=== PATIENT | female | born 1940 | race Caucasian/White ===

== ENCOUNTER → 2016-06-25 | Outpatient (CLI) | payer MEDICARE, OTHER ==
[~2016-06-25] MED LIST: ASPIRIN 81MG TA81 MG PO; CALCIUM 600MG+D1 TAB PO; CARTRIDGE STAM1 EACH SQ; LISINOPRIL10 MG PO; PRAVACHOL40 MG PO; RANITIDINE 150150 MG PO
--- NOTE | 2016-06-30 12:39 | RADIOLOGY REPORT PS360 ---
US THYROID, US ORGAN SITE (THYROID) US BIOPSY OR PARACENTESIS, ORDERING PHYSICIAN : Raheem Coronado MD PATIENT AGE: 76 years GENDER: Female INDICATION: THYROID NODULE left lobe ---Preliminary ULTRASOUND THYROID attention left lobe:----; At the anterior left lobe thyroid. We again see nodule overall measures up to 1.8 cm in length x 0.7 cm x 1.1 cm on today's studies. The color Doppler images suggest is quite vascular. .These images also determined the best approach for access to perform aspiration biopsy of this nodule. Scanning by Dr. Kay -----ULTRASOUND-GUIDED FNA BIOPSY left lobe thyroid nodule----- Following sterile preparation as well as local skin, and cautious deeper placement of Xylocaine anesthetic . I would also the patient received Xanax 1 mg and Lortab5 Prior to the procedure for comfort and mild sedation. Under ultrasound guidance the biopsy needle, was advanced to the nodule and positioned. Needle tip was observed passing into the nodule on each of multipleFNA biopsies passes. 5 passes were performed. We prepared a dry slide as well as placed remainder of material within cytology solution . FNA specimen material obtained and subsequently submitted to cytopathology.Patient tolerated procedure well. ------IMPRESSION: ------ 1. Preliminary ultrasound thyroid again shows the prominent thyroid nodule at anterior left lobe,, up to 1.8 cm maximum length on today's study 2. Subsequent Successful ultrasound-guided needle biopsy of this dominant left thyroid nodule (5 passes performed with 25-gauge needle. Generous amount of material submitted in cytology solution) 3. CYTOPATHOLOGY :.. 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 (Please see the cytopathology report from Dr. Coffey) Spring/Ronnie: Please call & fax report to Dr. Coronado's office (thus placed in discrepancy category in pacs)
== END ==
LOC: RAD 09:33
PROC: 0G9G3ZX Drainage of Left Thyroid Gland Lobe, Percutaneous Approach, Diagnostic (ICD-10-PCS; principal; 2016-06-25)
DX: E04.1 Nontoxic single thyroid nodule (principal)